=== PATIENT | female | born 1985 | race Caucasian/White ===

== ENCOUNTER → 2016-12-14 17:46 | Emergency (ER) | payer OTHER ==
[~2016-12-14 17:46] MED LIST: Iohexol 350* (CONTRAST) 500 ML MDV IV ONE
[2016-12-14 18:35] LABS: Hematocrit 36 % (35-47); Hemoglobin 12.1 g/dl (12.0-16.0); Mean Corpuscular HGB Conc 34 g/dl (31-36); Mean Corpuscular Hemoglobin 30 pg (27-31); Mean Corpuscular Volume 88 fL (80-97); Mean Platelet Volume 8 um3 (7.4-10.4); Red Blood Count 4.07 10^6/ul (4.0-5.4); Red Cell Distribution Width 13 % (10.5-15); White Blood Count 9.2 10^3/ul (3.5-10.8)
[2016-12-14 18:50] LABS: Albumin 3.3 g/dL (3.2-5.2); BUN/Creatinine Ratio 15.1 (8-20); C Reactive Protein 2.23 mg/L (< 5.00); Calcium 9.1 mg/dL (8.6-10.3); EGFR African American 174.2 (>60); EGFR Non-African American 135.4 (>60); Globulin 3.1 g/dL (2-4); Potassium 3.8 mmol/L (3.5-5.0); Total Bilirubin 0.3 mg/dL (0.2-1.0); Total Protein 6.4 g/dL (6.4-8.9)
[2016-12-14 20:20] VITALS: BP 97/64
--- NOTE | 2016-12-14 20:45 | RAD ---
INDICATION: Pleuritic chest pain, factor V. COMPARISON: There are no prior studies available for comparison. TECHNIQUE: A CT angiogram of the chest was performed with intravenous following intravenous injection of 75 ml of Omnipaque 350 nonionic contrast. Contiguous axial sections were obtained from the lung apices through the lung bases. Images were reconstructed in the coronal and sagittal planes. FINDINGS: There is relatively homogeneous opacification of the pulmonary arteries. No intraluminal filling defect or pulmonary embolism is seen. The heart is within normal limits in size. No pericardial effusion is present. The thoracic aorta is normal in caliber and demonstrates homogeneous contrast opacification. No significant enlarged mediastinal or hilar lymph nodes are seen. There is increased soft tissue density in the anterior mediastinum most consistent with residual thymus tissue. The lungs are clear. No pleural effusion is seen. No significant focal osseous abnormality is seen. IMPRESSION: NO EVIDENCE FOR PULMONARY EMBOLISM.
--- NOTE | 2016-12-14 22:41 | ED ---
Faiza Taylor Erika, scribed for Raul Stevenson MD on 12/14/16 at 2026 . HPI Chest Pain - HPI Summary HPI Summary: Patient is a 31-year-old female presenting to the ED with a CC of chest pain. Patient reports she has had constant, dull, left anterior chest pain for the past 1.5 weeks. She states pain was initially aggravated by cough and lying supine. Patient reports that pain seemed to improve yesterday, but worsened significantly this afternoon. She states pain is still constantly dull, but becomes sharp with coughing, bending over, and deep breathing. Today, pain also radiates straight through to the back. Patient also reports she has become more SOB in the past 2 hours. She denies pedal edema. Patient does note cold-like symptoms for the past 2 weeks. Patient reports that she is followed by [facility]. Hx positive Factor V in her last . . Hx asthma. FHx PE. - History of Current Complaint Chief Complaint: EDChestWallPain Time Seen by Provider: 12/14/16 17:57 Hx Obtained From: Patient Onset/Duration: Started Weeks Ago - 1.5 weeks, Atraumatic, Worse Since - this afternoon Timing: Constant Initial Severity: Mild Current Severity: Moderate Pain Intensity: 6 Pain Scale Used: 0-10 Numeric Chest Pain Location: Left Anterior Chest Pain Radiates: Yes Chest Pain Radiates To:: Back Character: Dull/Aching, Sharp/Stabbing - sometimes Aggravating Factor(s): Deep Breaths, Recumbent Position, Other: - cough, bending over Alleviating Factor(s): Nothing Associated Signs and Symptoms: Positive: Shortness of Breath. Negative: Calf Pain/Swelling - Allergy/Home Medications Allergies/Adverse Reactions: Allergies Allergy/AdvReac Type Severity Reaction Status Date / Time No Known Allergies Allergy Verified 12/14/16 17:51 PMH/Surg Hx/FS Hx/Imm Hx Endocrine/Hematology History: Denies: Hx Diabetes Respiratory History: Reports: Hx Asthma Infectious Disease History: Denies: Traveled Outside the [place] in Last 30 Days - Family History Known Family History: Positive: Other - Pulmonary embolism - Social History Lives: With Family Alcohol Use: None Hx Substance Use: No Substance Use Type: Reports: None Hx Tobacco Use: No Smoking Status (MU): Never Smoked Tobacco Review of Systems ENT: Other - cold-like symptoms Positive: Chest Pain - radiating to back Positive: Shortness Of Breath All Other Systems Reviewed And Are Negative: Yes Physical Exam Triage Information Reviewed: Yes Vital Signs On Initial Exam: Initial Vitals Temp Pulse Resp BP Pulse Ox 97.7 F 83 24 123/71 100 12/14/16 17:48 12/14/16 17:48 12/14/16 17:48 12/14/16 17:48 12/14/16 17:48 Vital Signs Reviewed: Yes Appearance: Positive: Well-Appearing, No Pain Distress Skin: Positive: Warm, Skin Color Reflects Adequate Perfusion, Dry Head/Face: Positive: Normal Head/Face Inspection Eyes: Positive: Normal ENT: Positive: Normal ENT inspection Neck: Positive: Supple, Nontender Respiratory/Lung Sounds: Positive: Clear to Auscultation, Breath Sounds Present Cardiovascular: Positive: RRR Abdomen Description: Positive: Nontender, Soft, Other: - Gravid abdomen Bowel Sounds: Positive: Present Musculoskeletal: Positive: Other - Mild tenderness left anterior axillary line on the mid chest Neurological: Positive: Normal Psychiatric: Positive: Affect/Mood Appropriate Diagnostics - Vital Signs Vital Signs Temp Pulse Resp BP Pulse Ox 12/14/16 17:48 97.7 F 83 24 123/71 100 - Laboratory Lab Results: Lab Results 12/14/16 12/14/16 12/14/16 Range/Units 18:20 18:20 18:20 WBC 9.2 (3.5-10.8) 10^3/ul RBC 4.07 (4.0-5.4) 10^6/ul Hgb 12.1 (12.0-16.0) g/dl Hct 36 (35-47) % MCV 88 (80-97) fL MCH 30 (27-31) pg MCHC 34 (31-36) g/dl RDW 13 (10.5-15) % Plt Count 243 (150-450) 10^3/ul MPV 8 (7.4-10.4) um3 Neut % (Auto) 76.0 (38-83) % Lymph % (Auto) 14.9 L (25-47) % [place] % (Auto) 8.2 (1-9) % Eos % (Auto) 0.3 (0-6) % Baso % (Auto) 0.6 (0-2) % Absolute Neuts (auto) 7.0 (1.5-7.7) 10^3/ul Absolute Lymphs (auto) 1.4 (1.0-4.8) 10^3/ul Absolute Monos (auto) 0.8 (0-0.8) 10^3/ul Absolute Eos (auto) 0 (0-0.6) 10^3/ul Absolute Basos (auto) 0.1 (0-0.2) 10^3/ul Absolute Nucleated RBC 0 10^3/ul Nucleated RBC % 0 D-Dimer, Quantitative 285 H (Less Than 230) ng/mL Sodium 136 (133-145) mmol/L Potassium 3.8 (3.5-5.0) mmol/L Chloride 104 (101-111) mmol/L Carbon Dioxide 24 (22-32) mmol/L Anion Gap 8 (2-11) mmol/L BUN 8 (6-24) mg/dL Creatinine 0.53 (0.51-0.95) mg/dL Est GFR ( Amer) 174.2 (>60) Est GFR (Non-Af Amer) 135.4 (>60) BUN/Creatinine Ratio 15.1 (8-20) Glucose 96 (70-100) mg/dL Calcium 9.1 (8.6-10.3) mg/dL Total Bilirubin 0.30 (0.2-1.0) mg/dL AST 18 (13-39) U/L ALT 17 (7-52) U/L Alkaline Phosphatase 91 (34-104) U/L C-Reactive Protein 2.23 (< 5.00) mg/L Total Protein 6.4 (6.4-8.9) g/dL Albumin 3.3 (3.2-5.2) g/dL Globulin 3.1 (2-4) g/dL Albumin/Globulin Ratio 1.1 (1-3) Result Diagrams: 12/14/16 18:20 12/14/16 18:20 Lab Statement: Any lab studies that have been ordered have been reviewed, and results considered in the medical decision making process. - CT CTA Chest CT Interpretation Completed By: Radiologist - IMPRESSION: NO EVIDENCE FOR PULMONARY EMBOLISM. - EKG 17:58 Cardiac Rate: NL - at 70 bpm EKG Rhythm: Sinus Rhythm EKG Interpretation: Non-specific T wave inversions in the anteroseptal leads Re-Evaluation - Re-Evaluation First Eval Re-Evaluation Time: 19:05 Comment: Discussed positive D dimer result and risks and benefits of Chest CTA. Patient elects to have the CTA and verbalizes understanding of the risks. Second Eval Re-Evaluation Time: 21:17 Comment: Discussed results of CTA chest. Will discharge. Chest Pain Course/Dx - Course Course Of Treatment: Lisa Daly presented with pleuritic chest pain and mild SOB in the context of 3rd trimester and a history of Factor 5 Leiden. Some aspects of her pain suggested a musculoskeletal etiology but with her risk factors we decided to R/U PE with a CTA. The scan was negative and she was relieved. - Diagnoses Provider Diagnoses: Chest wall pain Discharge - Discharge Plan Condition: Stable Disposition: HOME Patient Education Materials: Chest Wall Pain (ED) Referrals: [facility]FERR[facility] [Outside] Additional Instructions: Please use our referral service to find a PCP and follow up. The documentation as recorded by the Faiza frank Erika accurately reflects the service I personally performed and the decisions made by me, Raul Stevenson MD.
== END | disposition home or self-care (01) ==
LOC: ED 17:46
DX: R07.9 Chest pain, unspecified (principal); R06.02 Shortness of breath; R94.31 Abnormal electrocardiogram [ECG] [EKG]
CPT/HCPCS: 36415; 71275; 80053; 85025; 85379; 86140; 93005; 99282; Q9967

== ENCOUNTER 2017-02-06 07:26 | Inpatient (IN) | payer OTHER ==
[2017-02-06 08:35] LABS: Hematocrit 37 % (35-47); Hemoglobin 12.7 g/dl (12.0-16.0); Mean Corpuscular HGB Conc 34 g/dl (31-36); Mean Corpuscular Hemoglobin 31 pg (27-31); Mean Corpuscular Volume 91 fL (80-97); Mean Platelet Volume 10 um3 (7.4-10.4); Red Blood Count 4.09 10^6/ul (4.0-5.4); Red Cell Distribution Width 13 % (10.5-15); White Blood Count 5.5 10^3/ul (3.5-10.8)
[2017-02-06] MEDS ORDERED: Oxytocin in LR* 20 UNITS/1,000 ML BAG IVPB ONE (08:58)
[2017-02-06] MEDS ORDERED: Oxytocin in LR* 20 UNITS/1,000 ML BAG IVPB SCH ×2 (10:00→19:00)
[2017-02-06] MEDS ORDERED: OBEPIDURAL* 250 ML ONE (14:55)
[2017-02-06] MEDS ORDERED: Phenylephrine IV* 40 MCG/ML 10 ML SYRINGE IV PUSH PRN ×2 (16:04)
[2017-02-06] MEDS ORDERED: Famotidine TAB* 20 MG PO PRN (16:04)
[2017-02-06] MEDS ORDERED: Sodium Citrate/Citric Acid* 15 ML UDC PO PRN (16:04)
[2017-02-06] MEDS ORDERED: EPHEDrine (Pressors)* 50 MG/ML VIAL IV PUSH PRN ×2 (16:04)
[2017-02-06] MEDS ORDERED: OBEPIDURAL* 250 ML EPIDURAL SCH (17:00)
[2017-02-06] MEDS ORDERED: Acetaminophen TAB* 325 MG PO PRN (18:46)
[2017-02-06] MEDS ORDERED: Glycerin ADULT SUPP PR PRN (18:46)
[2017-02-06] MEDS ORDERED: Simethicone CHEW TAB* 80 MG PO SCH (21:00)
[2017-02-06] MEDS ORDERED: Misoprostol TAB* 200 MCG ONE (21:24)
[2017-02-06] MEDS: Dibucaine 1% 28.35 GM TUBE PR PRN (22:07)
[2017-02-06] MEDS: Docusate CAP* 100 MG PO SCH (22:07)
[2017-02-06] MEDS: Witch Hazel PAD* JAR TOPICAL PRN (22:07)
[2017-02-07] MEDS: Ibuprofen TAB* 600 MG PO PRN ×3 (05:08→19:55)
[2017-02-07 08:52] LABS: Hematocrit 33 % (35-47); Hemoglobin 11.3 g/dl (12.0-16.0); Mean Corpuscular HGB Conc 34 g/dl (31-36); Mean Corpuscular Hemoglobin 31 pg (27-31); Mean Corpuscular Volume 92 fL (80-97); Mean Platelet Volume 9 um3 (7.4-10.4); Red Blood Count 3.61 10^6/ul (4.0-5.4); Red Cell Distribution Width 13 % (10.5-15); White Blood Count 10.2 10^3/ul (3.5-10.8)
[2017-02-07] MEDS ORDERED: Ferrous Gluconate TAB* 324 MG TAB PO SCH (09:00)
[2017-02-07] MEDS: Docusate CAP* 100 MG PO SCH ×3 (09:13→19:55)
[2017-02-07 15:51] VITALS: BP 126/80
[2017-02-07] MEDS: Dibucaine 1% 28.35 GM TUBE PR PRN (19:56)
[2017-02-07] MEDS: Witch Hazel PAD* JAR TOPICAL PRN (19:56)
[2017-02-08] MEDS: Ibuprofen TAB* 600 MG PO PRN ×2 (02:06→09:26)
[2017-02-08] MEDS: Docusate CAP* 100 MG PO SCH (09:26)
[2017-02-08] MEDS: Dibucaine 1% 28.35 GM TUBE PR PRN (09:32)
[2017-02-08] MEDS: Witch Hazel PAD* JAR TOPICAL PRN (09:32)
== END 2017-02-08 11:37 | disposition home or self-care (01) | DRG 775 ==
LOC: MCHOBOUT 07:26 → MCHOB 07:41
PROVIDERS: ADMIT Obstetrics & Gynecology; ATTEND Obstetrics & Gynecology
PROC: 10E0XZZ Delivery of Products of Conception, External Approach (ICD-10-PCS; principal; 2017-02-06)
PROC: 10907ZC Drainage of Amniotic Fluid, Therapeutic from Products of Conception, Via Natural or Artificial Opening (ICD-10-PCS; 2017-02-06)
PROC: 3E033VJ Introduction of Other Hormone into Peripheral Vein, Percutaneous Approach (ICD-10-PCS; 2017-02-06)
PROC: 0HQ9XZZ Repair Perineum Skin, External Approach (ICD-10-PCS; 2017-02-06)
PROC: 4A1HXCZ Monitoring of Products of Conception, Cardiac Rate, External Approach (ICD-10-PCS; 2017-02-06)
DX: O48.0 Post-term pregnancy (principal); O99.824 Streptococcus B carrier state complicating childbirth; Z3A.40 40 weeks gestation of pregnancy; Z37.0 Single live birth; O70.0 First degree perineal laceration during delivery
CPT/HCPCS: 36415; 85025; 85027; 86850; 86900; 86901; A9270-GY

== ENCOUNTER 2017-03-31 09:19 | Inpatient (IN) | payer OTHER ==
[2017-03-31] MEDS ORDERED: Acetaminophen TAB* 325 MG PO PRN (13:37)
[2017-03-31] MEDS ORDERED: Ibuprofen TAB* 600 MG PO PRN (14:03)
[2017-03-31] MEDS ORDERED: Witch Hazel PAD* JAR TOPICAL PRN (14:03)
[2017-03-31] MEDS: LR @ 40 MLS/HR IV SCH ×2 (14:14→23:24)
[2017-03-31 14:16] LABS: Hematocrit 36 % (35-47); Hemoglobin 11.7 g/dl (12.0-16.0); Mean Corpuscular HGB Conc 32 g/dl (31-36); Mean Corpuscular Hemoglobin 29 pg (27-31); Mean Corpuscular Volume 89 fL (80-97); Mean Platelet Volume 8 um3 (7.4-10.4); Red Blood Count 4.07 10^6/ul (4.0-5.4); Red Cell Distribution Width 13 % (10.5-15); White Blood Count 21.1 10^3/ul (3.5-10.8)
[2017-03-31] MEDS ORDERED: Vancomycin per Pharmacy* NOTE FOLLOW UP PRN (14:34)
[2017-03-31] MEDS ORDERED: Vancomycin 1500 MG IV - x ONCE IVPB ONE ×2 (15:00)
--- NOTE | 2017-03-31 15:06 | RAD ---
CLINICAL HISTORY: , suspect abscess COMPARISON: Ultrasound dated March 21, 2017 TECHNIQUE: Multiple radial and antiradial ultrasound images were obtained of the left breast using grayscale and color Doppler imaging. FINDINGS: MASSES: There has been interval development of a complex fluid collection within the left breast in the area of palpable abnormality in the 12:00 to 9:00 position measuring approximately 6.3 x 2.9 x 5.5 cm in size. There is no hypervascularity. The mass noted on the previous examination is not well-visualized on the current examination. ARCHITECTURE: There is no architectural distortion. CALCIFICATIONS: There is no shadowing. SPECIAL CASES: None. OTHER FINDINGS: None. ASSESSMENT: 1. COMPLEX FLUID COLLECTION NOTED WITHIN THE LEFT BREAST. THE DIFFERENTIAL INCLUDES HEMATOMA VERSUS ABSCESS. 2. THE MASS NOTED ON THE PREVIOUS ULTRASOUND EXAMINATION IS NOT WELL-VISUALIZED ON THE CURRENT EXAMINATION. RECOMMENDATION: FURTHER EVALUATION, INCLUDING TISSUE SAMPLING OR DRAINAGE SHOULD BE BASED ON CLINICAL CHARACTERISTICS. ACR BIRADS Category 2: Benign
--- NOTE | 2017-03-31 16:51 | PN ---
Progress Note - Progress Note Date of Service: 03/31/17 Note: Procedure Note Under sterile conditions using 1%Lidocaine plain, I & D of left breast abscess was done without difficulty. There was ~20 cc of EBL, she tolerated the procedure well. 1/2 inch iodoform packing strip was used to pack the open wound. She tolerated the procedure well. [place]
[2017-03-31 17:06] LABS: Mono Internal Control QC Line Present
[2017-03-31] MEDS ORDERED: oxyCODONE/Acetamin 5/325 MG* TAB ONE (17:16)
[2017-03-31] MEDS: oxyCODONE/Acetamin 5/325 MG* TAB PO PRN (20:37)
[2017-03-31] MEDS ORDERED: Vancomycin(*) 1,500 MG in NS 0.9% 250 ML* 250 ML IVPB SCH (21:00)
[2017-04-01] MEDS: oxyCODONE/Acetamin 5/325 MG* TAB PO PRN ×7 (00:56→23:25)
[2017-04-01] MEDS: Vancomycin(*) 1,250 MG in NS 0.9% 250 ML* 250 ML IVPB SCH ×2 (03:21→14:53)
[2017-04-01 06:14] LABS: Hematocrit 37 % (35-47); Hemoglobin 12.2 g/dl (12.0-16.0); Mean Corpuscular HGB Conc 33 g/dl (31-36); Mean Corpuscular Hemoglobin 29 pg (27-31); Mean Corpuscular Volume 89 fL (80-97); Mean Platelet Volume 8 um3 (7.4-10.4); Red Blood Count 4.19 10^6/ul (4.0-5.4); Red Cell Distribution Width 13 % (10.5-15); White Blood Count 15.4 10^3/ul (3.5-10.8)
[2017-04-01] MEDS: Prenatal Vitamin TAB PO SCH (07:37)
--- NOTE | 2017-04-01 08:50 | PN ---
Progress Note - Progress Note Date of Service: 04/01/17 Note: Surgery Ms. Daly reports she feels better. She isn't sure about drainage as she hasn' t looked at the dressing. Vital Signs 03/31/17 03/31/17 03/31/17 13:46 13:55 15:36 Temperature 98.0 F 98.0 F 98.3 F Pulse Rate 81 81 88 Respiratory 18 18 22 Rate Blood Pressure 102/63 102/63 102/57 (mmHg) O2 Sat by Pulse 100 100 99 Oximetry 03/31/17 03/31/17 03/31/17 17:18 19:52 20:00 Temperature 98.7 F Pulse Rate 83 Respiratory 18 20 16 Rate Blood Pressure 104/54 (mmHg) O2 Sat by Pulse 100 Oximetry 03/31/17 03/31/17 04/01/17 20:37 22:37 00:03 Temperature 98.9 F Pulse Rate 78 Respiratory 18 16 16 Rate Blood Pressure 115/65 (mmHg) O2 Sat by Pulse 100 Oximetry 04/01/17 04/01/17 04/01/17 00:53 00:56 02:56 Temperature 100.6 F Pulse Rate Respiratory 16 16 Rate Blood Pressure (mmHg) O2 Sat by Pulse Oximetry 04/01/17 04/01/17 04/01/17 04:10 06:21 07:41 Temperature 98.9 F Pulse Rate 77 Respiratory 16 16 18 Rate Blood Pressure 111/62 (mmHg) O2 Sat by Pulse 99 Oximetry 04/01/17 07:53 Temperature 97.7 F Pulse Rate 69 Respiratory 16 Rate Blood Pressure 117/63 (mmHg) O2 Sat by Pulse 100 Oximetry Left breast now with less erythema; some thin fibrinopurulent material on packing, wound probes to ~4 cm. Repacked with 1/2 packing Intake & Output 03/31/17 04/01/17 04/01/17 22:59 06:59 14:59 Intake Total 990 2422 Output Total 0 Balance 990 2422 Intake: IV Fluids 990 2422 LR 990 2422 Oral 0 Output: Urine 0 Other: # Bowel Movements 0 # Voids 0 Laboratory Results - last 24 hr 03/31/17 03/31/17 04/01/17 14:05 16:15 06:06 WBC 21.1 H 15.4 H RBC 4.07 4.19 Hgb 11.7 L 12.2 Hct 36 37 MCV 89 89 MCH 29 29 MCHC 32 33 RDW 13 13 Plt Count 309 294 MPV 8 8 Neut % (Auto) 87.2 H 79.9 Lymph % (Auto) 4.2 L 8.7 L [place] % (Auto) 5.0 6.3 Eos % (Auto) 3.4 4.5 Baso % (Auto) 0.2 0.6 Absolute Neuts (auto) 18.4 H 12.3 H Absolute Lymphs (auto) 0.9 L 1.3 Absolute Monos (auto) 1.0 H 1.0 H Absolute Eos (auto) 0.7 H 0.7 H Absolute Basos (auto) 0 0.1 Absolute Nucleated RBC 0.01 0 Nucleated RBC % 0 0 Monoscreen Negative A/P: Improving s/p I&D. Could go home from surgical standpoint and f/u in office.
[2017-04-01] MEDS: LR @ 40 MLS/HR IV SCH (22:00)
[2017-04-02] MEDS ORDERED: Vancomycin Trough Check NOTE FOLLOW UP ONE (02:30)
[2017-04-02 03:01] LABS: EGFR African American 137.6 (>60)
[2017-04-02] MEDS: Vancomycin(*) 1,250 MG in NS 0.9% 250 ML* 250 ML IVPB SCH (03:26)
[2017-04-02] MEDS: oxyCODONE/Acetamin 5/325 MG* TAB PO PRN ×3 (03:32→11:40)
[2017-04-02] MEDS: LR @ 40 MLS/HR IV SCH (07:08)
[2017-04-02 07:17] VITALS: BP 113/63
[2017-04-02] MEDS: Prenatal Vitamin TAB PO SCH (07:29)
[2017-04-02] MEDS ORDERED: Vancomycin(*) 1,000 MG in NS 0.9% 250 ML* 250 ML IVPB SCH (11:00)
[2017-04-02] MEDS ORDERED: Clindamycin CAP* 150 MG ONE (11:33)
[2017-04-02] MEDS ORDERED: Clindamycin CAP* 150 MG PO SCH (14:00)
[2017-04-04] MEDS ORDERED: Vancomycin Trough Check NOTE FOLLOW UP ONE (10:30)
== END 2017-04-02 11:55 | disposition home or self-care (01) | DRG 776 ==
LOC: MED 13:32
PROVIDERS: ADMIT Obstetrics & Gynecology; ATTEND Obstetrics & Gynecology
PROC: 0H9U3ZZ Drainage of Left Breast, Percutaneous Approach (ICD-10-PCS; principal; 2017-03-31)
DX: O91.23 Nonpurulent mastitis associated with lactation (principal); Z80.42 Family history of malignant neoplasm of prostate; Z82.3 Family history of stroke; Z83.3 Family history of diabetes mellitus; Z82.49 Family history of ischemic heart disease and other diseases of the circulatory system; Z82.61 Family history of arthritis; Z84.89 Family history of other specified conditions
CPT/HCPCS: 36415; 80202; 82565; 84520; 85025; 86308; 87040; A9270-GY; J3370

== ENCOUNTER 2018-05-23 08:04 | Inpatient (IN) | payer OTHER ==
[2018-05-23] MEDS ORDERED: Penicillin G Potassium IV* 5,000,000 UNITS in NS 0.9% 100 ML* 100 ML IVPB ONE (08:20)
--- NOTE | 2018-05-23 08:37 | HP ---
General Information - Reason for Visit induction for previous 10 lb baby. currently post dates - General Information Maternal Age: 31 Grav: 5 Para: 1 SAB: 3 IEA: 0 Estimated Due Date: 02/05/17 Determined By: LMP Maternal Blood Type and Rh: AB Positive - Results this Serology/RPR Result: Non-Reactive Rubella Result: Immune HBsAg Result: Negative HIV Result: Negative GBS Culture Result: Positive Past Medical History Delivery History: Hx Uncomplicated Vaginal Delivery Pertinent Past Medical History: See Records Pertinent Past Surgical History: See Records Pertinent Family History: See Records - Antepartal Records Antepartal Records: Reviewed, Uncomplicated Review of Systems Constitutional: Comfortable Gastrointestinal: No Nausea/Vomiting Genitourinary: No Bleeding, No Leaking Fluid Musculoskeletal: No Complaint Movement: Normal Exam Allergies/Adverse Reactions: Allergies No Known Allergies Allergy (Verified 03/22/17 14:23) - Exam Breast: Breast Exam Deferred Extremities: No Edema Heart: Normal Rhythm/Heart Sounds HEENT: No Significant Findings Lungs: Clear Bilaterally Reflexes: DTR 2+ Targeted Exam Findings Cervical Exam: 4cm Effacement: 80% Station: Ballotable Presenting Part: Vertex Membrane Status: Intact EFM Findings - External Monitor Findings Baseline Heart Rate: 135 External Monitor Findings: Accelerations Present, Variability Moderate Contractions: None Assessment/Plan - Obstetrical Risk Factors Obstetrical Risk Factors: Post-Dates - Plan Plan: Induction
--- NOTE | 2018-05-23 08:38 | PN ---
Progress Note - Progress Note Date of Service: 05/23/18 Note: GBS bacturia starting pcn with pitocin
[2018-05-23] MEDS: Oxytocin in LR* 20 UNITS/1,000 ML BAG IVPB SCH ×2 (09:27→17:03)
[2018-05-23 09:33] LABS: ABS Basophils 0 10^3/ul (0-0.2); ABS Eosinophils 0 10^3/ul (0-0.6); ABS Lymphocytes 1.3 10^3/ul (1.0-4.8); ABS Monocytes 0.7 10^3/ul (0-0.8); ABS Neutrophils 6.4 10^3/ul (1.5-7.7); ABS Nucleated RBC 0 10^3/ul; Eosinophil % 0.3 % (0-6); Hematocrit 37 % (35-47); Hemoglobin 12.6 g/dl (12.0-16.0); Lymphocyte % 15.1 % (25-47); Mean Corpuscular HGB Conc 34 g/dl (31-36); Mean Corpuscular Hemoglobin 30 pg (27-31); Mean Corpuscular Volume 89 fL (80-97); Mean Platelet Volume 8.5 um3 (7.4-10.4); Nucleated Red Blood Cells % 0.1; Platelet Count 209 10^3/ul (150-450); Red Blood Count 4.16 10^6/ul (4.00-5.40); Red Cell Distribution Width 13 % (10.5-15); White Blood Count 8.5 10^3/ul (3.5-10.8)
[2018-05-23] MEDS ORDERED: OBEPIDURAL* 250 ML EPIDURAL ONE (11:10)
[2018-05-23] MEDS ORDERED: Famotidine TAB* 20 MG PO PRN (11:51)
[2018-05-23] MEDS ORDERED: Sodium Citrate/Citric Acid* 15 ML UDC PO PRN (11:51)
[2018-05-23] MEDS ORDERED: Phenylephrine IV* 40 MCG/ML 10 ML SYRINGE IV PUSH PRN ×2 (11:51)
[2018-05-23] MEDS ORDERED: EPHEDrine (Pressors)* 50 MG/ML VIAL IV PUSH PRN ×2 (11:51)
[2018-05-23] MEDS ORDERED: OBEPIDURAL* 250 ML EPIDURAL SCH (12:00)
[2018-05-23] MEDS ORDERED: Dibucaine 1% 28.35 GM TUBE PR PRN (13:15)
[2018-05-23] MEDS ORDERED: Acetaminophen TAB* 325 MG PO PRN (13:15)
[2018-05-23] MEDS ORDERED: Glycerin ADULT SUPP PR PRN (13:15)
[2018-05-23] MEDS ORDERED: Witch Hazel PAD* JAR TOPICAL PRN (13:15)
[2018-05-23] MEDS ORDERED: Penicillin G Potassium IV* 2,500,000 UNITS in NS 0.9% 100 ML* 100 ML IVPB SCH (13:30)
[2018-05-23] MEDS ORDERED: Oxytocin in LR* 20 UNITS/1,000 ML BAG IVPB SCH (14:00)
[2018-05-23] MEDS: Docusate CAP* 100 MG PO SCH ×2 (14:01→20:16)
[2018-05-23] MEDS: Ibuprofen TAB* 600 MG PO PRN ×2 (14:01→20:21)
[2018-05-23] MEDS ORDERED: Simethicone TAB* 80 MG TAB.CHEW PO SCH (17:30)
[2018-05-23] MEDS ORDERED: Misoprostol TAB* 200 MCG PR ONE (18:45)
[2018-05-24] MEDS: Ibuprofen TAB* 600 MG PO PRN ×2 (06:26→16:20)
[2018-05-24 06:59] LABS: ABS Basophils 0 10^3/ul (0-0.2); ABS Eosinophils 0.1 10^3/ul (0-0.6); ABS Lymphocytes 1.3 10^3/ul (1.0-4.8); ABS Monocytes 0.7 10^3/ul (0-0.8); ABS Neutrophils 6.4 10^3/ul (1.5-7.7); ABS Nucleated RBC 0 10^3/ul; Eosinophil % 0.6 % (0-6); Hematocrit 34 % (35-47); Hemoglobin 11.6 g/dl (12.0-16.0); Lymphocyte % 15.2 % (25-47); Mean Corpuscular HGB Conc 34 g/dl (31-36); Mean Corpuscular Hemoglobin 30 pg (27-31); Mean Corpuscular Volume 89 fL (80-97); Mean Platelet Volume 8.4 um3 (7.4-10.4); Nucleated Red Blood Cells % 0.2; Platelet Count 185 10^3/ul (150-450); Red Blood Count 3.85 10^6/ul (4.00-5.40); Red Cell Distribution Width 13 % (10.5-15); White Blood Count 8.5 10^3/ul (3.5-10.8)
[2018-05-24] MEDS: Docusate CAP* 100 MG PO SCH ×2 (08:00→16:21)
[2018-05-24] MEDS ORDERED: Ferrous Gluconate TAB* 324 MG TAB PO SCH (09:00)
[2018-05-24] MEDS ORDERED: Pneumococcal *Vac Polyvalent 0.5 ML VIAL IM ONE (09:00)
[2018-05-25] MEDS: Ibuprofen TAB* 600 MG PO PRN ×2 (00:15→07:25)
[2018-05-25] MEDS: Docusate CAP* 100 MG PO SCH ×2 (00:16→07:25)
[2018-05-25 07:41] VITALS: BP 114/71
== END 2018-05-25 10:45 | disposition home or self-care (01) | DRG 807 ==
LOC: MCHOBOUT 08:04 → MCHOB 08:32
PROVIDERS: ADMIT Obstetrics & Gynecology; ATTEND Obstetrics & Gynecology
PROC: 3E033VJ Introduction of Other Hormone into Peripheral Vein, Percutaneous Approach (ICD-10-PCS; principal; 2018-05-23)
PROC: 10E0XZZ Delivery of Products of Conception, External Approach (ICD-10-PCS; 2018-05-23)
PROC: 10907ZC Drainage of Amniotic Fluid, Therapeutic from Products of Conception, Via Natural or Artificial Opening (ICD-10-PCS; 2018-05-23)
PROC: 4A1HX4Z Monitoring of Products of Conception, Cardiac Electrical Activity, External Approach (ICD-10-PCS; 2018-05-23)
DX: O48.0 Post-term pregnancy (principal); O99.824 Streptococcus B carrier state complicating childbirth; O69.81X0 Labor and delivery complicated by cord around neck, without compression, not applicable or unspecified; Z37.0 Single live birth; Z3A.40 40 weeks gestation of pregnancy
CPT/HCPCS: 36415; 85025; 86850; 86900; 86901; 90686; 90732; A9270-GY; J2540

== ENCOUNTER 2019-08-26 08:07 | Inpatient (IN) | payer OTHER ==
[2019-08-26] MEDS ORDERED: Penicillin G Potassium IV* 5,000,000 UNITS in NS 0.9% 100 ML* 100 ML IVPB ONE (09:04)
--- NOTE | 2019-08-26 09:17 | HP ---
General Information - Reason for Visit IUP at 40-3/7 here for term induction of labor - General Information Maternal Age: 33 Grav: 7 Para: 3 SAB: 3 IEA: 0 Estimated Due Date: 08/23/19 Determined By: Early Ultrasound Maternal Blood Type and Rh: AB Positive - Results this Serology/RPR Result: Non-Reactive Rubella Result: Immune HBsAg Result: Negative HIV Result: Negative GBS Culture Result: Positive Past Medical History Delivery History: Hx Uncomplicated Vaginal Delivery Delivery History Comment: 2014 1st trimester miscarriage 11/2015 7lbs 11oz female. Delivered in [place] 03/2016 1st trimester miscarriage 04/2016 1st trimester miscarriage 01/2017 10lbs 1oz male. Delivered at [facility] [place] with Dr. Huff 05/2018 8lbs 15oz male. Delivered at [facility] [place] with Dr. Lopez Pertinent Past Medical History: See Records Past Medical History Comment: Raynauds Asthma - mild exercise induced. No current medications Bilateral benign breast lumps Pertinent Past Surgical History: See Records Past Surgical History Comment: Bilateral lumpectomy x 3 ([id number]). Removal of 11 benign breast lumps I&D (2016) left breast abscess Pertinent Family History: See Records Family History Comment: Father: Prostate Cancer Mother: Psoriatic arthritis, Sjorgrens, Lupus Sister: Autonomic disorder with multiple associated sx PGM: Clotting disorder. , stroke MGM: Obesity, heart disease, CHF, COPD, arthritis PGF: Diabetes. , heart disease - Antepartal Records Antepartal Records: Reviewed, Uncomplicated Review of Systems Constitutional: Comfortable CV Complaint: No Respiratory: Shortness of Breath: No Gastrointestinal: No Nausea/Vomiting, Normal Bowel Movement Genitourinary: No Dysuria, No Bleeding, No Leaking Fluid Musculoskeletal: No Complaint, No Epigastric Pain Neurological: No Headache, No Visual Changes Movement: Normal Exam Allergies/Adverse Reactions: Allergies No Known Allergies Allergy (Verified 03/22/17 14:23) BP 127/73 HR 82 RR 19 T 98 SpO2 100% on RA - Measurements Height: 5 ft 10 in Weight: 200 lb Weight in lbs: [phone] Body Mass Index (BMI): 28.7 Pre- Weight: 174 lb Weight Gained This : 26 lbs and 0 ozs - Exam Breast: Breast Exam Deferred CVA: No CVA Tenderness Extremities: No Edema Heart: Normal Rhythm/Heart Sounds HEENT: No Significant Findings Lungs: Clear Bilaterally Rectal: Rectal Exam Deferred Reflexes: DTR 2+ Thyroid: No Thyromegaly Other Exam Findings: Skin: Trunk with right sided area of hyperpigmentation/scattered nevi from clavicles to waist line encompassing right breast and wrapping around to back. - Abdominal Exam Abdomen Exam: Non-Tender, Fundal Height Consistent with Dates - Ultrasound/Biophysical Profile Ultrasound Status: Not Done Targeted Exam Findings Estimated Weight: 8.5-9lbs by Cristóbal Cervical Exam: 4cm Effacement: 70% Station: -1 Presenting Part: Vertex Membrane Status: Intact Sterile Speculum Exam: Not done Bleeding/Discharge: Bloody Show - with exam EFM Findings - External Monitor Findings Baseline Heart Rate: 125 External Monitor Findings: Accelerations Present, No Pattern of Variable or Late Decelerations, Variability Moderate, Baseline Stable External Monitor Findings Comment: No evidence of metabolic acidemia Contractions: None Assessment/Plan - Assessment IUP at 40-3/7 here for term induction - Obstetrical Risk Factors Obstetrical Risk Factors: GBS Positive - Plan Plan: Induction, Admit - Anticipate Vaginal Delivery Plan Comment: In consultation with Dr. Lopez ( patient by choice) admit to L&D. PARQ IV pitocin induction. Pt and FOB agree. Pt will request epidural with increased discomfort. Will initiate GBS prophylaxis and plan amniotomy once regular UC pattern present. Anticipate . - Date/Time of Admission Date of Admission: 08/26/19 Time of Admission: 08:36
[2019-08-26 09:27] LABS: ABS Lymphocytes 1.2 10^3/ul (1.0-4.8); ABS Monocytes 0.6 10^3/ul (0-0.8); ABS Neutrophils 5.6 10^3/ul (1.5-7.7); Eosinophil % 0.1 %; Hematocrit 36 % (35-47); Hemoglobin 12.5 g/dL (12.0-16.0); Lymphocyte % 16.2 %; Mean Corpuscular HGB Conc 35 g/dL (31-36); Mean Corpuscular Hemoglobin 31 pg (27-31); Mean Corpuscular Volume 89 fL (80-97); Platelet Count 203 10^3/uL (150-450); Red Blood Count 4.08 10^6 /uL (3.70-4.87); Red Cell Distribution Width 13 % (10-15); White Blood Count 7.4 10^3/uL (3.5-10.8)
[2019-08-26] MEDS: Lactated Ringers 1000 ML Bag* 1,000 ML IV SCH ×2 (09:34→15:02)
[2019-08-26 09:47] LABS: Urine Benzodiazepine Screen None Detected (None Detect); Urine Opiates Screen None Detected (None Detect)
[2019-08-26] MEDS ORDERED: Oxytocin in LR* 20 UNITS/1,000 ML BAG IVPB SCH ×2 (10:00→17:00)
--- NOTE | 2019-08-26 13:16 | PN ---
Progress Note - Progress Note Date of Service: 08/26/19 Note: S: Pt comfortable. Notes some menstrual like cramping. Amenable to amniotomy O: BP 128/75 HR 83 T 98.2 RR 18 FHT 120bpm. Moderate variability. +Accels. No decels UCs q 2-4 min. IV pit at 18mu/min VE 4-5/70%/vtx -1, AROM clear fluid A: IUP at 40-3/7 in early active labor No evidence of metabolic acidemia P: Close monitoring of maternal/ status. Continue IV pitocin. Plan epidural when pt requests. Dr. Lopez aware of pt presence and condition.
[2019-08-26] MEDS ORDERED: OBEPIDURAL* 250 ML EPIDURAL ONE (14:14)
[2019-08-26] MEDS ORDERED: Penicillin G Potassium IV* 3,000,000 UNITS in NS 0.9% 100 ML* 100 ML IVPB SCH (15:00)
[2019-08-26] MEDS ORDERED: Phenylephrine 40 MCG/ML SYRINGE IV PUSH PRN ×2 (15:32)
[2019-08-26] MEDS ORDERED: Lactated Ringers 1000 ML Bag* 500 ML IV PRN ×2 (15:32)
[2019-08-26] MEDS ORDERED: Sodium Citrate/Citric Acid* 15 ML UDC PO PRN (15:32)
[2019-08-26] MEDS ORDERED: Famotidine TAB* 20 MG PO PRN (15:32)
[2019-08-26] MEDS ORDERED: Lactated Ringers 1000 ML Bag* 1,000 ML IV ONE (15:32)
[2019-08-26] MEDS ORDERED: OBEPIDURAL* 250 ML EPIDURAL SCH (16:00)
[2019-08-26] MEDS ORDERED: Lactated Ringers 1000 ML Bag* 1,000 ML IV SCH ×2 (16:00→17:00)
[2019-08-26] MEDS ORDERED: Witch Hazel PAD* JAR TOPICAL PRN (16:09)
[2019-08-26] MEDS ORDERED: Dibucaine 1% 28.35 GM TUBE PR PRN (16:09)
[2019-08-26] MEDS ORDERED: Acetaminophen TAB* 325 MG PO PRN (16:09)
--- NOTE | 2019-08-26 16:09 | PROCNOTE ---
[facility]: Delivery Note - Delivery A Date of : 08/26/19 Time of : 15:45 [place] Sex: Male - "Braden" Score 1 Minute: 10 Score 5 Minutes: 10 Gestational Age in Weeks and Days at Delivery: 40 Weeks and 3 Days Delivery Method: Spontaneous Vaginal Labor: Induced - IV pitocin and amniotomy to clear fluid Did Patient attempt ?: N/A, No Previous Amniotic Fluid: Clear Estimated Blood Loss: 400 Anesthesia/Analgesia: CEI for Labor - placed by Dr. Ornelas Delivered By: Marci Lynn - Nursery Level of Nursery: Regular/Bedside - Perineum Perineal Injury: None/Intact Perineal Repair: None - Events Delivery Events of Note: Pitocin During Labor, Full Course of Antibiotics - for GBS prophylaxis - Additional Delivery Notes Additional Delivery Notes: Patient admitted for term induction of labor. IV pitocin and amniotomy to clear fluid led to onset active labor with expected progression to complete. Length of active phase 2 hours, 23 min. Pushed x 2 min. liveborn male. Slow, controlled delivery of head. OA to ROT. Tight transverse shoulders delivered with strong maternal push. Tight nuchal cord x 1 reduced after delivery. vigrous with spontaneous cry. HR>110bpm. Delivered to maternal abdomen. Cord clamped x 2 and cut by FOB once pulsations ceased. Spontaneous delivery intact placenta. Membranes complete. Fundus firm to massage with IV pitocin infusing. Perineum intact. No repair needed as above. EBL 400mL. At time of note mother and infant in stable condition. Planning to both breast and bottle feed.
[2019-08-26] MEDS: Ibuprofen TAB* 600 MG PO SCH (16:53)
[2019-08-26] MEDS: Docusate CAP* 100 MG PO SCH (20:55)
[2019-08-27] MEDS: Ibuprofen TAB* 600 MG PO SCH ×4 (02:52→18:09)
[2019-08-27 08:35] LABS: ABS Lymphocytes 1.1 10^3/ul (1.0-4.8); ABS Monocytes 0.5 10^3/ul (0-0.8); ABS Neutrophils 6.9 10^3/ul (1.5-7.7); Eosinophil % 0.3 %; Hematocrit 30 % (35-47); Hemoglobin 10.6 g/dL (12.0-16.0); Mean Corpuscular HGB Conc 35 g/dL (31-36); Mean Corpuscular Hemoglobin 32 pg (27-31); Mean Corpuscular Volume 90 fL (80-97); Mean Platelet Volume 8.7 fL (7.4-10.4); Platelet Count 164 10^3/uL (150-450); Red Blood Count 3.36 10^6 /uL (3.70-4.87); Red Cell Distribution Width 13 % (10-15); White Blood Count 8.6 10^3/uL (3.5-10.8)
[2019-08-27] MEDS ORDERED: Ferrous Gluconate TAB* 324 MG TAB PO SCH (09:00)
[2019-08-27] MEDS: Docusate CAP* 100 MG PO SCH ×2 (09:29→18:09)
[2019-08-28] MEDS: Ibuprofen TAB* 600 MG PO SCH ×2 (03:15→09:24)
[2019-08-28] MEDS: Docusate CAP* 100 MG PO SCH (09:23)
[2019-08-28 11:36] VITALS: BP 132/68
== END 2019-08-28 12:10 | disposition home or self-care (01) | DRG 807 ==
LOC: MCHOBOUT 08:07 → MCHOB 08:36
PROVIDERS: ADMIT Obstetrics & Gynecology; ATTEND Midwife
PROC: 10E0XZZ Delivery of Products of Conception, External Approach (ICD-10-PCS; principal; 2019-08-26)
PROC: 3E033VJ Introduction of Other Hormone into Peripheral Vein, Percutaneous Approach (ICD-10-PCS; 2019-08-26)
PROC: 10907ZC Drainage of Amniotic Fluid, Therapeutic from Products of Conception, Via Natural or Artificial Opening (ICD-10-PCS; 2019-08-26)
DX: O48.0 Post-term pregnancy (principal); Z37.0 Single live birth; Z3A.40 40 weeks gestation of pregnancy; O99.824 Streptococcus B carrier state complicating childbirth; O69.81X0 Labor and delivery complicated by cord around neck, without compression, not applicable or unspecified
CPT/HCPCS: 36415; 80307; 85025; 86850; 86900; 86901; A9270-GY; J2540